=== PATIENT | female | born 1945 | race African-American/Black ===

== ENCOUNTER 2021-03-06 22:09 | Emergency (ER) | payer OTHER, MEDICAID ==
[2021-03-06 22:16] VITALS: BP_SYST 146
[2021-03-06] MEDS ORDERED: GASTROGRAFIN 120 ML ONE (22:45)
[2021-03-07 01:20] VITALS: BP_SYST 115
== END 2021-03-07 01:23 ==
LOC: SED 22:09
DX: K94.23 Gastrostomy malfunction (principal)
CPT/HCPCS: 43762; 74240; 99284; Q9963

== ENCOUNTER 2021-06-27 00:06 | Emergency (ER) | payer OTHER, MEDICAID ==
[~2021-06-27] VITALS: Ht 172.7 cm; Wt 99.8 kg
[2021-06-27 00:06] VITALS: BP_SYST 122
--- NOTE | 2021-06-27 00:23 | NUR ---
PT ARRIVED BY [facility] FROM [facility] FOR PULLING HER G TUBE OUT. PT IS A&OX1 NONVERBAL. AT 2200 PATIENT WAS SEEN WITHOUT A GTUBE. PT USES A 20 KYRGYZ FOR HER GTUBE. PT SEEMS TO NOT BE IN PAIN.
--- NOTE | 2021-06-27 00:30 | NUR ---
ER at bedside examining patient.
--- NOTE | 2021-06-27 00:40 | NUR ---
DR ROSE PLACED A NEW 20 GU[place]EMALAN G TUBE INI PLACE OF THE OLD ONE. AWAITING XR FOR PLACEMENT.
--- NOTE | 2021-06-27 01:00 | NUR ---
RADIOLOGY AT BEDSIDE
[2021-06-27] MEDS ORDERED: GASTROGRAFIN 120 ML ONE (01:04)
--- NOTE | 2021-06-27 01:52 | NUR ---
TRANSPORT CALLED AND REQUESTED. ETA 40 MINS. CALLED [facility] AND SPOKE WITH LAURA, FACILITY IS AWARE
[2021-06-27] MEDS ORDERED: POLY119P2 PEG (02:19)
[2021-06-27 02:39] VITALS: BP_SYST 122
--- NOTE | 2021-06-27 02:39 | NUR ---
[facility] given report and given written and verbal discharge instructions and verbalizes understanding. ER MD discussed with patient the results and treatment provided. Patient in stable condition. ID arm band removed. no Rx given. Patient educated on pain management and to follow up with PMD. Pain Scale 0/10. Opportunity for questions provided and answered.
== END 2021-06-27 02:39 | disposition home or self-care (01) ==
LOC: SED 00:06
DX: K94.23 Gastrostomy malfunction (principal); Z79.899 Other long term (current) drug therapy
CPT/HCPCS: 43762; 74240; 99284; Q9963